=== PATIENT | female | born 1985 ===

== ENCOUNTER 2017-03-22 17:17 | Emergency (ER) | payer OTHER ==
[2017-03-22 17:17] VITALS: BMI 31.4
[2017-03-22] MEDS ORDERED: Lidocaine 2% Inj (20ml) INFIL STA (18:03)
[2017-03-22] MEDS ORDERED: Lidocaine 2% Inj (20ml) ONE (18:18)
--- NOTE | 2017-03-22 19:30 | C.PDOC ---
History Of Present Illness <Javier Lomax - Last Filed: 03/22/17 19:35> <Shaunna Sandoval - Last Filed: 03/22/17 22:22> 31 year old female presents to the ER with a complaint of an abscess to the left labia majora for the past 5 days. Denies fever or chills. (Shaunna Sandoval) <Javier Lomax - Last Filed: 03/22/17 19:35> History Per: Patient History/Exam Limitations: no limitations Onset/Duration Of Symptoms: Days Current Symptoms Are (Timing): Still Present Quality Of Discomfort: Unable To Describe Associated Symptoms: denies: Fever, Chills Alleviating Factors: None Recent travel outside of the [place]: No Abnormal Vaginal Bleeding: No <Shaunna Sandoval - Last Filed: 03/22/17 22:22> Time Seen by Provider: 03/22/17 17:37 Chief Complaint (Nursing): Female Genitourinary Past Medical History Reviewed: Historical Data, Nursing Documentation, Vital Signs - Medical History PMH: No Chronic Diseases Surgical History: No Surg Hx Family History: States: Unknown Family Hx - Social History Hx Tobacco Use: No Hx Alcohol Use: No Hx Substance Use: No - Immunization History Hx Tetanus Toxoid Vaccination: No Hx Influenza Vaccination: No Hx Pneumococcal Vaccination: No <Shaunna Sandoval - Last Filed: 03/22/17 22:22> Vital Signs: Last Vital Signs Temp 98.8 F 03/22/17 20:13 Pulse 79 03/22/17 20:13 Resp 18 03/22/17 20:13 BP 121/81 03/22/17 20:13 Pulse Ox 98 03/22/17 22:15 Review Of Systems Constitutional: Negative for: Fever, Chills Genitourinary: Positive for: Other (Abscess to labia majora) <Shaunna Sandoval - Last Filed: 03/22/17 22:22> Physical Exam - Physical Exam Appears: Non-toxic, No Acute Distress Skin: Normal Color, Warm, Dry Head: Atraumatic, Normacephalic Oral Mucosa: Moist Chest: Symmetrical, No Tenderness Cardiovascular: Rhythm Regular Respiratory: Normal Breath Sounds, No Rales, No Rhonchi, No Wheezing Pelvic: Other (Abscess to left labia majora, swollen, tender, and fluctuant) Neurological/Psych: Oriented x3, Normal Speech, Normal Cognition <Shaunna Sandoval - Last Filed: 03/22/17 22:22> ED Course And Treatment O2 Sat by Pulse Oximetry: 98 (Room air) Pulse Ox Interpretation: Normal Progress Note: Patient tolerated I&D with no difficulty, will discharge with clindamycin and instructions to follow up for wound check. <Shaunna Sandoval - Last Filed: 03/22/17 22:22> - Incision & Drainage Of Abscess Anesthesia: Lidocaine 2% Used During Procedure: Continuous Pulse Oximetry, Numerical Tool Programmer, Oxygen ( Patient was sedated with Nitrous oxide/Oxygen. The patient tolerated the procedure well and had no adverse cardiac events.) Prep Used: Betadine Procedure: Incised W/Scalpel Blade#: (11), Drained Pus, Probed To Break Up Loculations, Packed W/Gauze, Cultures Obtained And Sent To Lab <Javier Lomax - Last Filed: 03/22/17 19:35> Disposition <Javier Lomax - Last Filed: 03/22/17 19:35> - Disposition Disposition Time: 19:50 <Shaunna Sandoval - Last Filed: 03/22/17 22:22> - Disposition Referrals: [facility] [Outside] [facility] [Outside] Disposition: HOME/ ROUTINE Condition: IMPROVED Additional Instructions: Follow up with PMD within 1-2 days. Return to ED in 2 days for wound check. Return to ED immediately if feel worse. Prescriptions: Clindamycin [Cleocin] 300 mg PO Q6 #28 cap oxyCODONE/Acetaminophen [Percocet 5/325 mg Tab] 1 tab PO QID PRN #20 tab PRN Reason: Pain Instructions: Abscess Incision and Drainage (ED) Forms: [employer] (Serbian) Print Language: MALAGASY - Clinical Impression Clinical Impression: Abscess of labia majora <Javier Lomax - Last Filed: 03/22/17 19:35> - Scribe Statement The provider has reviewed the documentation as recorded by the Scribe <Shaunna Sandoval - Last Filed: 03/22/17 22:22> - Scribe Statement Kiko Mukherjee All medical record entries made by the Scribe were at my direction and personally dictated by me. I have reviewed the chart and agree that the record accurately reflects my personal performance of the history, physical exam, medical decision making, and the department course for this patient. I have also personally directed, reviewed, and agree with the discharge instructions and disposition. (Shaunna Sandoval)
[2017-03-22 20:13] VITALS: BP 121/81; PULSE 79; RESP 18; TEMP 98.8
[2017-03-22 22:16] VITALS: O2SAT 98
== END 2017-03-22 20:18 | disposition home or self-care (01) ==
LOC: C.ER 17:17
DX: N76.4 Abscess of vulva (principal)

== ENCOUNTER 2017-03-24 18:48 | Emergency (ER) | payer SELFPAY ==
[2017-03-24 18:48] VITALS: BMI 31.4
[2017-03-24 19:19] VITALS: BP 133/87; PULSE 85; RESP 16; TEMP 98.3; O2SAT 99
--- NOTE | 2017-03-24 20:18 | C.PDOC ---
History Of Present Illness 31 year old female presents to the ED for a wound check. Patient was evaluated in ED two days ago for a left labial abscess and underwent I&D to the site. Patient states her pain has been improving and she has been taking antibiotics as prescribed. Patient denies fever, chills, or discharge. Time Seen by Provider: 03/24/17 19:58 Chief Complaint (Nursing): Wound Check History Per: Patient History/Exam Limitations: no limitations Onset/Duration Of Symptoms: Days Ago (2) Current Symptoms Are (Timing): Better Location Of Injury: Left: Labia Quality Of Symptoms: denies: Draining Additional History Per: Patient Past Medical History Reviewed: Historical Data, Nursing Documentation, Vital Signs Vital Signs: Last Vital Signs Temp 98.3 F 03/24/17 19:16 Pulse 85 03/24/17 19:16 Resp 16 03/24/17 19:16 BP 133/87 03/24/17 19:16 Pulse Ox 99 03/24/17 23:05 - Medical History PMH: No Chronic Diseases Surgical History: No Surg Hx Family History: States: Unknown Family Hx - Social History Hx Tobacco Use: No Hx Alcohol Use: No Hx Substance Use: No - Immunization History Hx Tetanus Toxoid Vaccination: No Hx Influenza Vaccination: No Hx Pneumococcal Vaccination: No Review Of Systems Constitutional: Negative for: Fever, Chills Genitourinary: Positive for: Other (wound check s/p left labial abscess I&D) Physical Exam - Physical Exam Appears: Non-toxic, No Acute Distress Skin: Normal Color, Warm, Dry Pelvic: Other (packing removed. healing abscess to left labial region. no discharge, erythema or signs of infection ) Neurological/Psych: Oriented x3, Normal Speech, Normal Cognition ED Course And Treatment O2 Sat by Pulse Oximetry: 99 (on RA) Pulse Ox Interpretation: Normal Progress Note: Patient's culture results showed sensitivity to Clindamycin. Patient is advised to continue taking prescribed antibiotics. Patient is resting comfortably, is showing no signs of distress and is stable for discharge. Patient is advised to follow up with her PMD within 1-2 days for further evaluation. Disposition - Disposition Disposition: HOME/ ROUTINE Disposition Time: 20:16 Condition: STABLE Additional Instructions: Follow up with PMD within 1-2 days. Continue medications as previously instructed. Return to Ed if feel worse. Instructions: Acute Wound Care (ED) Forms: [facility] (Azerbaijani) - Clinical Impression Clinical Impression: Wound check, abscess - PA / DIRECTOR AUTO / Resident Statement MD/DO has reviewed & agrees with the documentation as recorded. - Scribe Statement The provider has reviewed the documentation as recorded by the Scribe (Yanci Segal) All medical record entries made by the Scribe were at my direction and personally dictated by me. I have reviewed the chart and agree that the record accurately reflects my personal performance of the history, physical exam, medical decision making, and the department course for this patient. I have also personally directed, reviewed, and agree with the discharge instructions and disposition.
== END 2017-03-24 20:21 | disposition home or self-care (01) ==
LOC: C.ER 18:48
DX: Z51.89 Encounter for other specified aftercare (principal)

== ENCOUNTER 2018-07-13 10:42 | Emergency (ER) | payer SELFPAY ==
[2018-07-13 10:42] VITALS: BMI 31.4
[2018-07-13] MEDS ORDERED: Sodium Chloride 0.9% 1,000 ML IV ONE ×2 (11:28→14:58)
--- NOTE | 2018-07-13 11:28 | C.PDOC ---
History Of Present Illness 32 year old female patient presents to the emergency room complaining of diffuse abdominal pain. Associated symptoms includes nausea and diarrhea. Patient denies any antibiotic medications, sick contacts, GI bleed, history of surgeries, or recent travels. Patient notes she occasionally drinks. Time Seen by Provider: 07/13/18 11:16 Chief Complaint (Nursing): Abdominal Pain History Per: Patient History/Exam Limitations: no limitations Onset/Duration Of Symptoms: Days Current Symptoms Are (Timing): Still Present Location Of Pain/Discomfort: Diffuse Past Medical History Reviewed: Historical Data, Nursing Documentation, Vital Signs Vital Signs: Last Vital Signs Temp 99.2 F 07/13/18 10:56 Pulse 100 H 07/13/18 10:56 Resp 18 07/13/18 10:56 BP 123/80 07/13/18 10:56 Pulse Ox 99 07/13/18 10:56 Surgical History: No Surg Hx Family History: States: Unknown Family Hx - Social History Hx Tobacco Use: No Hx Alcohol Use: No Hx Substance Use: No - Immunization History Hx Tetanus Toxoid Vaccination: No Hx Influenza Vaccination: No Hx Pneumococcal Vaccination: No Review Of Systems Except As Marked, All Systems Reviewed And Found Negative. Constitutional: Negative for: Other (antibiotic medications; recent travels; sick contacts ) Gastrointestinal: Positive for: Nausea, Abdominal Pain (diffuse ), Diarrhea. Negative for: Melena, Hematochezia Physical Exam - Physical Exam Appears: Non-toxic, No Acute Distress Skin: Warm, Dry Head: Normacephalic Eye(s): bilateral: Normal Inspection Oral Mucosa: Moist Throat: Normal Neck: Normal ROM, Supple Chest: Symmetrical Cardiovascular: Rhythm Regular Respiratory: Normal Breath Sounds, No Rales, No Rhonchi, No Wheezing Gastrointestinal/Abdominal: Soft, Tenderness (right and left lower quadrant; RUQ), No Distention, No Guarding, No Rebound Back: No CVA Tenderness Extremity: Normal ROM (x4) Neurological/Psych: Oriented x3, Normal Speech ED Course And Treatment - Laboratory Results Result Diagrams: 07/13/18 12:23 07/13/18 12:23 O2 Sat by Pulse Oximetry: 99 (RA) Pulse Ox Interpretation: Normal - CT Scan/US Abdomen/Pelvis CT Other Rad Studies (CT/US): Interpreted By Me, Read By Radiologist CT/US Interpretation: Accession No. : [id number]. Patient Name / ID : TAX NGUYEN / [id number]. Exam Date : 07/13/2018 13:50:56 ( Approved ). Study Comment : Sex / Age : F / 32Y. Creator : Echo Singh MD. Dictator : Echo Singh MD. [employer] : [employer] Certified Supervisor : Echo Singh MD. Approver2 : Report Date : 07/13/2018 15:10:16. My Comment : . Date of service: 07/13/2018. PROCEDURE: CT Abdomen and Pelvis with contrast. HISTORY: lower abd pain, diarrhea. COMPARISON: None available. TECHNIQUE: Contrast dose: 609.62. Radiation dose: Total exam DLP = 609.62 mGy-cm. This CT exam was performed using one or more of the following dose reduction techniques: Automated exposure control, adjustment of the mA and/or kV according to patient size, and/or use of iterative reconstruction technique. FINDINGS: LOWER THORAX: No visible consolidation, pleural effusion, or pneumothorax. LIVER: Unremarkable. GALLBLADDER AND BILE DUCTS: Unremarkable. PANCREAS: Unremarkable. SPLEEN: Unremarkable. ADRENALS: Unremarkable. KIDNEYS AND URETERS: The kidneys enhance symmetrically. No hydronephrosis or obstructing calculus identified. VASCULATURE: No aortic aneurysm. No atherosclerotic calcification or mural plaque present. BOWEL: Stomach is nondistended. Lack of oral contrast limits evaluation for bowel pathology. Bowel loops appear within normal limits of caliber without evidence of obstruction. Wall thickening of the right colon; correlate clinically for possibility of colitis. APPENDIX: The appendix appears dilated measuring approximately 8 mm in diameter. Fluid is noted within the appendiceal lumen. No significant periappendiceal stranding appreciated. Sub cm pericecal lymph nodes evident. PERITONEUM: No significant free fluid. No definite free air. LYMPH NODES: No bulky adenopathy identified. BLADDER: Thick-walled urinary bladder. REPRODUCTIVE: Uterus is present. BONES: No acute osseous abnormality is detected. OTHER FINDINGS: None. IMPRESSION: Wall thickening of the right colon; correlate clinically for possibility of colitis. The appendix appears dilated measuring approximately 8 mm in diameter. Fluid is noted within the appendiceal lumen. No significant periappendiceal stranding appreciated. Sub cm pericecal lymph nodes evident. Correlate clinically for possibility of acute appendicitis. Thick-walled urinary bladder. Recommend correlation with urinalysis. Medical Decision Making Medical Decision Making: plans: -- chem labs -- blood work -- CT abd and pelvis -- IV fluids -- pepcid -- zofran -- toradol On re-exam, the patient reports improvement of symptoms. Lungs are CTA, heart is RRR, abdomen is soft, non-tender and the patient is tolerating PO well. Pt ambulatory in the ED with steady gait. Follow up with the medical doctor within 1-2 days.Return if worsened. Disposition - Disposition Referrals: [facility] [Outside] Disposition: HOME/ ROUTINE Disposition Time: 17:11 Condition: GOOD Additional Instructions: Your sugar was elevated today. This could be the start of early diabetes. You must watch your diet, drink a lot of water, and exercise. Follow up with the medical doctor/PMD within 1-2 days for blood sugar recheck. RETURN TO THE ED SOON POSSIBLE IF THERE ANY WORSENING. Instructions: Nausea and Vomiting, Adult Forms: [employer] (Chinese) Print Language: PORTUGUESE - Clinical Impression Clinical Impression: Vomiting, Abdominal wall pain - PA / BALLISTICS TEACHER / Resident Statement / has reviewed & agrees with the documentation as recorded. - Scribe Statement The provider has reviewed the documentation as recorded by the Simba Wills Do All medical record entries made by the Miriamibtano were at my direction and personally dictated by me. I have reviewed the chart and agree that the record accurately reflects my personal performance of the history, physical exam, medical decision making, and the department course for this patient. I have also personally directed, reviewed, and agree with the discharge instructions and disposition.
[2018-07-13] MEDS ORDERED: Iodixanol 320 MG/ML 100 ML BOTTLE IV ONE ×2 (11:49→13:19)
[2018-07-13] MEDS ORDERED: Sodium Chloride 0.9% 1,000 ML ONE ×3 (11:53→14:57)
[2018-07-13 12:13] LABS: HCG,QUALITATIVE URINE NEGATIVE (NEGATIVE)
[2018-07-13 12:25] LABS: SQUAMOUS EPITHIAL 20 /hpf (0-5); URINE BACTERIA RARE (<OCC); URINE BILIRUBIN NEGATIVE (NEGATIVE); URINE BLOOD 2+ (NEGATIVE); URINE CLARITY Hazy (Clear); URINE COLOR Amber (YELLOW); URINE GLUCOSE (UA) 3+ mg/dL (Normal); URINE LEUKOCYTE ESTERASE 1+ Leu/uL (Negative); URINE PROTEIN NEGATIVE (NEGATIVE); URINE UROBILINOGEN NORMAL mg/dL (0.2-1.0)
[2018-07-13 12:28] LABS: BASO % 0.4 % (0.0-2.0); EOS % 0.1 % (0.0-4.0); HEMOGLOBIN 13.2 g/dL (11.0-16.0); LYMPH # 0.8 K/uL (1.0-4.3); MEAN CORPUSCULAR HGB CONC 32.8 g/dL (33.0-37.0); MEAN PLATELET VOLUME 10.9 fL (7.2-11.7); MONO # 0.4 K/uL (0.0-0.8); MONO % 3.9 % (0.0-10.0); NEUT # 8.5 K/uL (1.8-7.0); NEUT % 87.6 % (50.0-75.0); PLATELET COUNT 165 K/uL (130-400); RBC 4.87 Mil/uL (3.80-5.20); RED CELL DISTRIBUTION WIDTH 15.3 % (11.5-14.5); WHITE BLOOD COUNT 9.7 K/uL (4.8-10.8)
[2018-07-13 12:29] LABS: MEAN CELL VOLUME 82.5 fL (81.0-99.0)
[2018-07-13 12:51] LABS: ALB/GLOB RATIO 1.5 (1.0-2.1); ALBUMIN 4.3 g/dL (3.5-5.0); ALT/SGPT 7 U/L (9-52); AST/SGOT 40 U/L (14-36); BANDS 9 % (0-2); BLOOD UREA NITROGEN 9 mg/dL (7-17); CALCIUM 9.1 mg/dl (8.6-10.4); GFR NON-AFRICAN AMERICAN > 60; LIPASE 45 U/L (23-300); LYMPHOCYTE 6 % (20-40); MONOCYTE 2 % (0-10); NEUTROPHIL 81 % (50-75); REACTIVE LYMPHOCYTES 2 % (0-0); TOTAL CELLS COUNTED 100
[2018-07-13 12:52] LABS: PLATELET ESTIMATE NORMAL (NORMAL)
[2018-07-13 12:53] LABS: ANISOCYTOSIS SLIGHT; LARGE PLATELETS PRESENT; STOMATOCYTES SLIGHT
--- NOTE | 2018-07-13 15:13 | CT ---
Date of service: 07/13/2018 PROCEDURE: CT Abdomen and Pelvis with contrast HISTORY: lower abd pain, diarrhea COMPARISON: None available. TECHNIQUE: Contrast dose: 609.62 Radiation dose: Total exam DLP = 609.62 mGy-cm. This CT exam was performed using one or more of the following dose reduction techniques: Automated exposure control, adjustment of the mA and/or kV according to patient size, and/or use of iterative reconstruction technique. FINDINGS: LOWER THORAX: No visible consolidation, pleural effusion, or pneumothorax. LIVER: Unremarkable. GALLBLADDER AND BILE DUCTS: Unremarkable. PANCREAS: Unremarkable. SPLEEN: Unremarkable. ADRENALS: Unremarkable. KIDNEYS AND URETERS: The kidneys enhance symmetrically. No hydronephrosis or obstructing calculus identified. VASCULATURE: No aortic aneurysm. No atherosclerotic calcification or mural plaque present. BOWEL: Stomach is nondistended. Lack of oral contrast limits evaluation for bowel pathology. Bowel loops appear within normal limits of caliber without evidence of obstruction. Wall thickening of the right colon; correlate clinically for possibility of colitis. APPENDIX: The appendix appears dilated measuring approximately 8 mm in diameter. Fluid is noted within the appendiceal lumen. No significant periappendiceal stranding appreciated. Sub cm pericecal lymph nodes evident. PERITONEUM: No significant free fluid. No definite free air. LYMPH NODES: No bulky adenopathy identified. BLADDER: Thick-walled urinary bladder. REPRODUCTIVE: Uterus is present. BONES: No acute osseous abnormality is detected. OTHER FINDINGS: None. IMPRESSION: Wall thickening of the right colon; correlate clinically for possibility of colitis. The appendix appears dilated measuring approximately 8 mm in diameter. Fluid is noted within the appendiceal lumen. No significant periappendiceal stranding appreciated. Sub cm pericecal lymph nodes evident. Correlate clinically for possibility of acute appendicitis. Thick-walled urinary bladder. Recommend correlation with urinalysis.
[2018-07-13 15:28] VITALS: O2SAT 99
--- NOTE | 2018-07-13 16:26 | CP.PCM.CON ---
History of Present Illness - History of Present Illness History of Present Illness: SURGERY CONSULT NOTE FOR DR. MORENO Reason: r/o Appendicitis 32F presents with abdominal pain that started yesterday night. Patient states pain is currently diffuse and in the periumbilical region. She states the pain is associated with diarrhea and chills, She denies nausea or vomiting, She states she is hungry and would like to eat food. She has a history of gastritis and has had this pain before. She states she did not eat anything out the ordinary. Patient denies history of colonoscopy. PMH: Gastritis PSH: Denies Social: denies tobacco and illicit drug use. Admits to social alcohol use Allergies: NKDA Past Patient History - Past Social History Smoking Status: Never Smoked - ENDOCRINE/METABOLIC Hx Endocrine Disorders: Yes Other/Comment: high sugar, diet controlled - PSYCHIATRIC Hx Substance Use: No - SURGICAL HISTORY Hx Surgeries: No - ANESTHESIA Hx Anesthesia: No Meds Allergies/Adverse Reactions: Allergies Allergy/AdvReac Type Severity Reaction Status Date / Time No Known Allergies Allergy Verified 03/24/17 19:19 Physical Exam - Constitutional Appears: Non-toxic, No Acute Distress Additional comments: uncomfortable - ENT Exam ENT Exam: Mucous Membranes Moist - Respiratory Exam Respiratory Exam: Clear to Auscultation Bilateral, NORMAL BREATHING PATTERN - Cardiovascular Exam Cardiovascular Exam: REGULAR RHYTHM, +S1, +S2 - GI/Abdominal Exam GI & Abdominal Exam: Soft, Tenderness (perumbilically). absent: Distended, Firm, Guarding, Rebound, Rigid - Extremities Exam Extremities exam: Negative for: pedal edema, tenderness - Neurological Exam Neurological exam: Alert, Oriented x3 - Psychiatric Exam Psychiatric exam: Normal Affect, Normal Mood - Skin Skin Exam: Dry, Intact, Normal Color, Warm Results - Vital Signs Recent Vital Signs: Last Vital Signs Temp 98.2 F 07/13/18 14:29 Pulse 86 07/13/18 14:29 Resp 18 07/13/18 14:29 BP 107/65 07/13/18 14:29 Pulse Ox 99 07/13/18 15:28 - Labs Result Diagrams: 07/13/18 12:23 07/13/18 12:23 Labs: Laboratory Results - last 24 hr 07/13/18 07/13/18 07/13/18 11:58 12:23 12:23 WBC 9.7 RBC 4.87 Hgb 13.2 Hct 40.2 MCV 82.5 D MCH 27.0 MCHC 32.8 L RDW 15.3 H Plt Count 165 MPV 10.9 Neut % (Auto) 87.6 H Lymph % (Auto) 8.0 L Otero % (Auto) 3.9 Eos % (Auto) 0.1 Baso % (Auto) 0.4 Neut # (Auto) 8.5 H Lymph # (Auto) 0.8 L Otero # (Auto) 0.4 Eos # (Auto) 0.0 Baso # (Auto) 0.0 Neutrophils % (Manual) 81 H Band Neutrophils % 9 H Lymphocytes % (Manual) 6 L Reactive Lymphs % 2 H Monocytes % (Manual) 2 Platelet Estimate Normal Large Platelets Present Anisocytosis (manual) Slight Stomatocytes Slight Sodium 131 L Potassium 3.6 Chloride 100 Carbon Dioxide 20 L Anion Gap 15 BUN 9 Creatinine 0.3 L Est GFR ( Amer) > 60 Est GFR (Non-Af Amer) > 60 Random Glucose 268 H Calcium 9.1 Total Bilirubin 0.5 AST 40 H ALT 7 L D Alkaline Phosphatase 144 H Total Protein 7.2 Albumin 4.3 Globulin 2.9 Albumin/Globulin Ratio 1.5 Lipase 45 Urine Color Muna Urine Clarity Hazy Urine pH 5.0 Ur Specific [place] 1.038 H Urine Protein Negative Urine Glucose (UA) 3+ H Urine Ketones 1+ H Urine Blood 2+ H Urine Nitrate Negative Urine Bilirubin Negative Urine Urobilinogen Normal Ur Leukocyte Esterase 1+ H Urine WBC (Auto) 20 H Urine RBC (Auto) 29 H Ur Squamous Epith Cells 20 H Urine Bacteria Rare Urine HCG, Qual Negative Assessment & Plan - Assessment and Plan (Free Text) Assessment: 32F presents with abdominal pain 2/2 likely enteritis/gastritis Plan: - PO Trial - IV Fluids - DC if tolerating Discussed with Dr. Natalio Aquino, PGY3
[2018-07-13 17:15] VITALS: BP 118/77; PULSE 82; RESP 20; TEMP 98.5
== END 2018-07-13 17:20 | disposition home or self-care (01) ==
LOC: C.ER 10:42
DX: R10.9 Unspecified abdominal pain (principal); R11.10 Vomiting, unspecified
CPT/HCPCS: 74177; 80053; 81001; 82948; 83690; 84703; 85025; 96361; 96374; 96375; 99285; J1885; J2405; J7030; Q9967